=== PATIENT | female | born 1940 | race American Indian/Alaskan Native ===

== ENCOUNTER 2016-12-24 08:49 | Day surgery (SDC) | payer MEDICARE, MEDICAID ==
[~2016-12-24 08:49] MED LIST: QUELICIN ONE; XYLOCAINE MPF 2% ONE; ZOFRAN ONE
[2016-12-24] MEDS ORDERED: WATER FOR IRRIG STERILE IR ONE ×2 (09:26→13:31)
[2016-12-24] MEDS ORDERED: NACL 0.9% 100 ML ONE (09:26)
[2016-12-24] MEDS ORDERED: GLUCAGEN ONE (09:27)
--- NOTE | 2016-12-24 09:43 | Anesthesia Consultation ---
Anesthesia Consult and Med Hx Date of service: 12/24/16 - Airway Anesthetic Teeth Evaluation: Good ROM Head & Neck: Adequate Mental/Hyoid Distance: Adequate Mallampati Class: Class II Intubation Access Assessment: Probably Good - Pulmonary Exam CTA: Yes - Cardiac Exam Cardiac Exam: RRR - Pre-Operative Health Status ASA Pre-Surgery Classification: ASA2, ASA3 Proposed Anesthetic Plan: General - Cardiovascular System Hx Hypertension: Yes - Endocrine Hx Non-Insulin Dependent Diabetes: Yes Hx Thyroid Disease: Yes - Other Systems Hx Obesity: Yes
--- NOTE | 2016-12-24 09:43 | Anesthesia Day of Surgery ---
Anesthesia Day of Surgery - Day of Surgery Patient Examined: Yes Patient H&P Reviewed: Yes Patient is NPO: Yes
[2016-12-24] MEDS ORDERED: SUBLIMAZE ONE (09:54)
[2016-12-24] MEDS ORDERED: DIPRIVAN 10 MG/ML IV ONE (09:54)
[2016-12-24] MEDS ORDERED: NACL 0.9% 1000 ML 1,000 ML IV SCH (10:00)
--- NOTE | 2016-12-24 10:55 | Short Stay Summary ---
Short Stay Documentation Date of service: 12/24/16 - History H&P: obtained from office - Allergies and Medications Current Medications: Allergies No Known Allergies Allergy (Verified 12/24/16 09:34) Home Medications Medication Instructions Recorded Confirmed Last Taken Type Alendronate Sodium [Fosamax] 5 mg PO QDAY 12/24/16 12/24/16 12/23/16 History Active Medications Sodium Chloride (Nacl 0.9% 1000 Ml) 1,000 mls @ 50 mls/hr IV DIRECT SKY Last Admin: 12/24/16 09:52 Dose: 50 mls/hr - Brief post op/procedure progress note Date of procedure: 12/24/16 Findings: dictated report Estimated blood loss: none Pathology: none Condition: stable - Disposition Condition at discharge: Good Disposition: DISCHARGED TO HOME OR SELFCARE - Discharge Diagnoses (1) Choledocholithiasis Status: Acute Short Stay Discharge Plan Activity: other (no driving for 24 hours) Weight Bearing Status: Full Weight Bearing Diet: regular Follow up with: COLEMAN GARG MD [Primary Care Provider] - 7 Days
--- NOTE | 2016-12-24 11:04 | Operative Report ---
Operative Report Operative Report: Date of procedure: 12/24/2016 Preprocedure diagnoses: History of gallbladder stones, dilated common bile duct and suspected common bile duct stones on MRCP. 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 No definite stones. PD not imaged Procedure: Endoscopic retrograde cholangiography with papillotomy and balloon sweeping of the him and bile duct Medications: Propofol under monitored anesthesia care-see separate records for details Estimated blood loss: 0 Endoscopist: Joaquin Snider M.D. After careful discussion of the nature and purpose of the procedure, risks, benefits, and alternatives consent was obtained. The patient was placed in the supine position on the fluoroscopy table and medicated per anesthesia. The Rossolini 570 side-viewing therapeutic videoscope was carefully passed per orum into the esophagus and advanced into the stomach. The stomach was insufflated with air and the contents aspirated clear. The scope was initially retroflexed. The cardia and fundus were normal. The scope was then straightened and further advanced. The antrum is normal. The scope was passed through the pylorus into the duodenum. The duodenal bulb, ampulla of Vater and descending duodenum were normal in appearance. The common bile duct was then cannulated without difficulty. The common bile duct appeared [dilated throughout. No definite filling defects were seen however there was a very thin , less than 1 mm stricture at the proximal end of the common hepatic duct right at the bifurcation. It was elected to perform a papillotomy as small stones could be missed in this setting. Papillotomy was performed followed by balloon sweeping of the duct twice and no stones were retrieved. The balloon was insufflated to its maximal distention at 12 mm and could easily traversed through the stricture.The procedure was well-tolerated overall. No bleeding was encountered Conclusions: Dilated common bile duct and benign-appearing stricture at the proximal end of the common hepatic duct just below the bifurcation. No definite common bile duct stones. Pancreatic duct not imaged by design. Plan: Observation in recovery. Laparoscopic cholecystectomy in the near future as planned. Electronically signed: Joaquin Snider M.D.
--- NOTE | 2016-12-24 11:08 | Post Anesthesia Evaluation ---
- Post Anesthesia Evaluation Patient Participated: Yes Airway Patent: Yes Stable Respiratory Function: Yes Nausea/Vomiting: No Temp > 96.8F: Yes Pain Manageable: Yes Adequeate Hydration: Yes Anesthesia Complications: No Block Receding Appropriately: Not Applicable Patient on Ventilator: No
[2016-12-24 14:00] VITALS: BP 118/73
--- NOTE | 2016-12-24 15:23 | Fluoroscopy Report ---
ERCP: Injected contrast demonstrated a bandlike area of stricture in the proximal duct near the origin of the intrahepatic branches. No filling defects identified in the CBD or branches. A balloon was passed through the CBD. No calculi reported. A papillotomy was performed.
== END 2016-12-24 08:50 | disposition home or self-care (01) ==
LOC: GIO 08:49
PROVIDERS: ATTEND Internal Medicine Gastroenterology
DX: K83.1 Obstruction of bile duct (principal); M19.90 Unspecified osteoarthritis, unspecified site; E11.9 Type 2 diabetes mellitus without complications; I10 Essential (primary) hypertension; E66.9 Obesity, unspecified; Z68.32 Body mass index [BMI] 32.0-32.9, adult; Z98.890 Other specified postprocedural states; Z72.89 Other problems related to lifestyle; Z83.3 Family history of diabetes mellitus; Z82.49 Family history of ischemic heart disease and other diseases of the circulatory system; Z83.49 Family history of other endocrine, nutritional and metabolic diseases
CPT/HCPCS: 43262; 74328; 82962; C1726; J0330; J2405; J2704; J3010; J7030; Q9967; J1610